=== PATIENT | female | born 1950 | race African-American/Black ===

== ENCOUNTER 2023-10-18 03:39 | Emergency (ER) | payer BC, MEDICAID, MEDICARE ==
[~2023-10-18] VITALS: Ht 162.6 cm; Wt 79.0 kg
[2023-10-18 03:42] VITALS: O2SAT 98
[2023-10-18] MEDS ORDERED: TOPUD PO (05:39)
[2023-10-18] MEDS ORDERED: TRIMO EACHEYE (05:39)
[2023-10-18] MEDS ORDERED: ALBU6.7H15 INH (05:39)
[2023-10-18 05:56] VITALS: BP 119/80; PULSE 75; RESP 20; TEMP 36.66960; O2SAT 96
== END 2023-10-18 05:58 | disposition home or self-care (01) ==
LOC: ER 03:39
DX: H10.9 Unspecified conjunctivitis (principal); B34.9 Viral infection, unspecified; Z90.49 Acquired absence of other specified parts of digestive tract; Z90.710 Acquired absence of both cervix and uterus; Z88.0 Allergy status to penicillin; Z20.822 Contact with and (suspected) exposure to COVID-19
CPT/HCPCS: 71045; 87426; 99284

== ENCOUNTER 2024-05-29 18:14 | Emergency (ER) | payer BC, MEDICARE ==
[~2024-05-29] VITALS: Ht 162.6 cm; Wt 81.6 kg
[~2024-05-29 18:14] MED LIST: ALBU6.7H15 INH; TOPUD PO; TRIMO EACHEYE
[2024-05-29 18:28] VITALS: BP 159/69; PULSE 88; RESP 16; TEMP 36.7; O2SAT 100
[2024-05-29] MEDS ORDERED: OFLO5DRO LEFTEYE (23:03)
== END 2024-05-29 23:32 | disposition home or self-care (01) ==
LOC: ER 18:14
DX: H11.30 Conjunctival hemorrhage, unspecified eye (principal); I10 Essential (primary) hypertension; Z88.0 Allergy status to penicillin; Z90.710 Acquired absence of both cervix and uterus; Z90.49 Acquired absence of other specified parts of digestive tract; Z98.890 Other specified postprocedural states
CPT/HCPCS: 99283

== ENCOUNTER 2024-11-16 23:31 | Emergency (ER) | payer MEDICARE, BC ==
[~2024-11-16] VITALS: Ht 162.6 cm; Wt 82.0 kg
[~2024-11-16 23:31] MED LIST changes: +OFLO5DRO LEFTEYE
[2024-11-16 23:45] VITALS: O2SAT 100
[2024-11-17] MEDS ORDERED: ACET-2708 MT (01:33)
[2024-11-17] MEDS ORDERED: PHEN20SP MT (01:33)
[2024-11-17] MEDS: ACETAMINOPHEN 325MG TABLET PO ONE (01:38)
[2024-11-17] MEDS: VISCOUS LIDOCAINE 2% 15 ML UDC MM ONE (01:38)
[2024-11-17] MEDS: MAGNESIUM/ALUMINUM HYDROXIDE/SIMETHICONE 30ML UDC PO ONE (01:38)
[2024-11-17 02:19] VITALS: BP 168/91; PULSE 75; RESP 18; TEMP 36.9; O2SAT 97
== END 2024-11-17 02:27 | disposition home or self-care (01) ==
LOC: ER 23:31
DX: R13.10 Dysphagia, unspecified (principal); Z88.0 Allergy status to penicillin; Z90.49 Acquired absence of other specified parts of digestive tract; Z90.710 Acquired absence of both cervix and uterus
CPT/HCPCS: 99284